=== PATIENT | male | born 1970 | race Caucasian/White ===

== ENCOUNTER 2025-02-05 16:33 | Outpatient (CLI) | payer OTHER, SELFPAY ==
--- OUTSIDE RECORDS SUMMARY | 2025-02-05 16:40 | XMS_ITS | Continuity of Care Document ---
Author Organization [facility] Address [address] [place] [address] Phone Care Team Providers Care Fire Management Officer Name Role Phone Unavailable Unavailable Unavailable Advance Directives Directive Yes / No Effective Date File Name No Information Encounters Encounter Description Practice Location Reason(s) For Visit Diagnoses Date Provider Providers Copied on Encounter [facility], [address], [place], [place], [id number], [place] tel:[phone] [facility] No Information 8200 0 No Information Family History Family Member Type Diagnosis Age At Onset No Information Payers Payer name Insurance type Covered democrat ID Authoriza tion(s) No Information Social History Type Description Quantity Date Captured Comments Sex Male Smoking Status No Information Chief Complaint And Reason For Visit No Information Reason For Referral Reason For Referral No Information History Of Present Illness Encounter Date Complaint History Of Prese nt Illness No Information Functional Status Date Functional Assessmen t No Information Instructions Date Instruction Additional Infor mation No Information Assessments Type Assessment Date No Information Patient Care Teams Name Effective Dates (start - stop) Status Members No Information
--- OUTSIDE RECORDS SUMMARY | 2025-02-05 16:40 | XMS_ITS | Clinical Summary ---
Author Organization [address] Address [address] [place] [phone] Care Team Providers Care Material Cutter Name Role Phone Polly Au MD Primary Care Provide r Allergies No known active allergies Medications No known medications Active Problems No known active problems Surgical History Surgery Date Site/Laterality Comments NO PAST SURGERIES Medical History Medical History Date Comments Hypertension states pre hype rtension Social History Tobacco Use Types Packs/Day Years Used Date Smoking Tobacco: Every Day Cigarettes Smokeless Tobacco: Never Personal Safety Answer Date Recorded Getting School Help Needed Not on file 11/13 Sex and Gender Information Value Date Recorded Sex Assigned at Not on file Legal Sex Male 8:02 AM TRAIN DISPATCHER Gender Identity Not on file Sexual Orientation Not on file Obstetrics History Last Filed Vital Signs Vital Sign Reading Time Taken Comments Blood Pressure - - Pulse - - Temperature 36.5 C (97.7 F) 11/06/2020 11:39 AM TRAIN DISPATCHER Respiratory Rate - - Oxygen Saturation - - Inhaled Oxygen Concentration - - Weight 77.1 kg (170 lb) 11/06/2020 11:39 AM TRAIN DISPATCHER Height 172.7 cm (5' 8 ) 11/06/2020 11:39 AM TRAIN DISPATCHER Body Mass Index 25.85 11/06/2020 11:39 AM TRAIN DISPATCHER Plan of Treatment Not on file Insurance AETNA [facility] HMO Care Teams Material Cutter Relationship Specialty Start Date End Date Polly Au MD PCP - General Family Practice 11/06/20
--- OUTSIDE RECORDS SUMMARY | 2025-02-05 16:40 | XMS_ITS | Referral Summary ---
Author Organization [address] Address [address] [place] [phone] Care Team Providers Care Communications Professor Name Role Phone Polly Au MD Primary Care Provide r Allergies No known active allergies Medications No known medications Active Problems No known active problems Social History Tobacco Use Types Packs/Day Years Used Date Smoking Tobacco: Every Day Cigarettes Smokeless Tobacco: Never Personal Safety Answer Date Recorded Getting School Help Needed Not on file 11/13 Sex and Gender Information Value Date Recorded Sex Assigned at Not on file Legal Sex Male 8:02 AM WATCH REPAIR PERSON Gender Identity Not on file Sexual Orientation Not on file Last Filed Vital Signs Vital Sign Reading Time Taken Comments Blood Pressure - - Pulse - - Temperature 36.5 C (97.7 F) 11/06/2020 11:39 AM WATCH REPAIR PERSON Respiratory Rate - - Oxygen Saturation - - Inhaled Oxygen Concentration - - Weight 77.1 kg (170 lb) 11/06/2020 11:39 AM WATCH REPAIR PERSON Height 172.7 cm (5' 8 ) 11/06/2020 11:39 AM WATCH REPAIR PERSON Body Mass Index 25.85 11/06/2020 11:39 AM WATCH REPAIR PERSON Plan of Treatment Not on file Insurance AETNA [facility] HMO Care Teams Communications Professor Relationship Specialty Start Date End Date Polly Au MD PCP - General Family Practice 11/06/20
[2025-02-05 16:50] LABS: Basophils Absolute Auto 0.05 K/mm3 (0.00-0.10); Basophils Percent Auto 0.4 % (0.0-1.0); Eosinophils Percent Auto 0.9 % (1.0-6.0); Hematocrit 44.7 % (40.0-54.0); Hemoglobin 14.6 g/dL (14.0-18.0); Immature Granulocyte Absolute 0.07 K/mm3 (0.00-0.00); Immature Granulocyte Percent A 0.6 % (0.0-0.0); Lymphocytes Absolute Auto 3.34 K/mm3 (1.10-4.50); Lymphocytes Percent Auto 28.8 % (18.0-42.0); Mean Corpuscular HGB Conc 32.7 g/dL (32-36); Mean Corpuscular Hemoglobin 29.3 pg (27.0-31.0); Mean Corpuscular Volume 89.6 fL (78.0-102.0); Mean Platelet Volume 10.9 fl (8.7-11.0); Monocytes Absolute Auto 1.18 K/mm3 (0.10-0.90); Monocytes Percent Auto 10.2 % (2.0-11.0); Neutrophils Absolute Auto 6.86 K/mm3 (1.70-7.20); Neutrophils Percent Auto 59.1 % (50.0-70.0); Platelet Count Result 314 K/mm3 (150-420); Red Blood Count 4.99 M/mm3 (4.70-6.10); Red Cell Distribution Width 12.9 % (11.6-14.4); White Blood Count 11.6 K/mm3 (4.8-10.8)
[2025-02-05 17:03] LABS: Alanine Aminotransferase 43 U/L (6-50); Albumin Level 4.4 g/dL (3.5-5.1); Alkaline Phosphatase 69 U/L (38-126); Anion Gap 5 mmol/L (4-12); Aspartate Amino Transferase 36 U/L (17-59); Bilirubin,Total 0.6 mg/dL (0.2-1.3); Blood Urea Nitrogen 13 mg/dL (9-20); Carbon Dioxide 30 mmol/L (22-30); Chloride 106 mmol/L (98-107); Creatine Kinase 153 U/L (55-170); Estimated Glomerular Filt Rate > 60; Glucose 87 mg/dL (65-110); Osmolality Calculated 291 mOsm/kg (285-295); Potassium 4.3 mmol/L (3.4-5.0); Sodium 141 mmol/L (137-145); Total Protein 7.4 g/dL (6.3-8.2)
[2025-02-05 17:15] LABS: Troponin I < 0.012 ng/mL (0.000-0.034)
== END 2025-02-05 16:34 | disposition home or self-care (01) ==
LOC: CHSLAB 16:38
PROVIDERS: PCP Family Medicine; Visit Provider Family Medicine
DX: R07.89 Other chest pain (principal)
CPT/HCPCS: 36415; 80053; 82550; 84443; 84484; 85025

== ENCOUNTER 2025-02-24 09:02 | Outpatient (CLI) | payer OTHER, SELFPAY ==
--- NOTE | 2025-02-24 09:10 | EST_ITS ---
Patient Info Name: Sal Schafer Age: 54 years : 1970 Gender: Male Ht: 68 in Wt: 198 lbs BSA: 2.10 m2 HR: 83 bpm BP: 131 / 93 mmHg Heart Rhythm: Sinus Rhythm Technical Quality: Good Exam Date: 02/24/2025 9:10 AM Patient Status: O Admit Date: 02/24/2025 Exam Type: CA stress test treadmill An exercise stress test was performed. Staff Attending Provider: Lorenzo Pate MD Summary 1. 1. Negative Brice exercise stress test for ischemic ST changes by ECG criteria. 2. 2. Good functional capacity, achieving 10 METs of workload. 3. 3. Appropriate HR response to exercise. 4. 4. Appropriate HR recovery at 1 minute post exercise. 5. 5. No imaging with stress testing. History/Risk Factors Hypertension: Yes Protocol: Brice Stress ECG Details Stage: REST Duration (min): 2 min : 40 sec Speed (mph): 0.0 Grade (%): 0 HR (bpm): 83 SBP (mmHg): 131 DBP (mmHg): 93 METS: --- Stage: REST Duration (min): 13 min : 38 sec Speed (mph): 0.0 Grade (%): 0 HR (bpm): 91 SBP (mmHg): 131 DBP (mmHg): 93 METS: --- Stage: STAGE 1 Duration (min): 1 min : 0 sec Speed (mph): 1.7 Grade (%): 10 HR (bpm): 109 SBP (mmHg): 131 DBP (mmHg): 93 METS: --- Stage: STAGE 1 Duration (min): 2 min : 0 sec Speed (mph): 1.7 Grade (%): 10 HR (bpm): 114 SBP (mmHg): 131 DBP (mmHg): 93 METS: --- Stage: STAGE 1 Duration (min): 3 min : 0 sec Speed (mph): 1.7 Grade (%): 10 HR (bpm): 98 SBP (mmHg): 199 DBP (mmHg): 87 METS: --- Stage: STAGE 2 Duration (min): 1 min : 0 sec Speed (mph): 2.5 Grade (%): 12 HR (bpm): 124 SBP (mmHg): 199 DBP (mmHg): 87 METS: --- Stage: STAGE 2 Duration (min): 2 min : 0 sec Speed (mph): 2.5 Grade (%): 12 HR (bpm): 130 SBP (mmHg): 199 DBP (mmHg): 87 METS: --- Stage: STAGE 2 Duration (min): 3 min : 0 sec Speed (mph): 2.5 Grade (%): 12 HR (bpm): 134 SBP (mmHg): 192 DBP (mmHg): 107 METS: --- Stage: STAGE 3 Duration (min): 1 min : 0 sec Speed (mph): 3.4 Grade (%): 14 HR (bpm): 143 SBP (mmHg): 192 DBP (mmHg): 107 METS: --- Stage: STAGE 3 Duration (min): 2 min : 0 sec Speed (mph): 3.4 Grade (%): 14 HR (bpm): 148 SBP (mmHg): 192 DBP (mmHg): 107 METS: --- Stage: STAGE 3 Duration (min): 2 min : 20 sec Speed (mph): 3.4 Grade (%): 14 HR (bpm): 150 SBP (mmHg): 192 DBP (mmHg): 107 METS: --- Stage: RECOVERY Duration (min): 0 min : 39 sec Speed (mph): 0.0 Grade (%): 0 HR (bpm): 141 SBP (mmHg): 171 DBP (mmHg): 104 METS: --- Stage: RECOVERY Duration (min): 1 min : 39 sec Speed (mph): 0.0 Grade (%): 0 HR (bpm): 122 SBP (mmHg): 171 DBP (mmHg): 104 METS: --- Stage: RECOVERY Duration (min): 2 min : 40 sec Speed (mph): 0.0 Grade (%): 0 HR (bpm): 113 SBP (mmHg): 147 DBP (mmHg): 79 METS: --- Stage: RECOVERY Duration (min): 3 min : 40 sec Speed (mph): 0.0 Grade (%): 0 HR (bpm): 108 SBP (mmHg): 138 DBP (mmHg): 80 METS: --- Stage: RECOVERY Duration (min): 4 min : 39 sec Speed (mph): 0.0 Grade (%): 0 HR (bpm): 109 SBP (mmHg): 138 DBP (mmHg): 80 METS: --- Stage: RECOVERY Duration (min): 5 min : 40 sec Speed (mph): 0.0 Grade (%): 0 HR (bpm): 107 SBP (mmHg): 133 DBP (mmHg): 82 METS: --- Stage: RECOVERY Duration (min): 6 min : 31 sec Speed (mph): 0.0 Grade (%): 0 HR (bpm): 111 SBP (mmHg): 133 DBP (mmHg): 82 METS: --- Rest HR: 91 bpm Peak HR: 150 bpm Rest Sys BP: 131 mmHg Peak Sys BP: 199 mmHg Max Pred HR: 165 bpm % Max Pred HR: 91 % Target HR: 140 bpm Max RPP: 29,850 bpm*mmHg Justice Score: 1 Target HR Summary: Patient's target heart rate was achieved BP Response: Normal blood pressure response Termination Reason: Fatigue Cardiac Symptoms: None Max ST Seg Deviation: 1.40 mm Total Time: 8 min : 20 sec Rest Lucas BP: 93 mmHg Peak Lucas BP: 87 mmHg Angina Score: None Total METS: 10.3 Resting ECG Sinus rhythm with IRBBB. Stress ECG No abnormal ST/T wave changes with exercise. Arrhythmias Frequent PVCs. Report Signatures
--- OUTSIDE RECORDS SUMMARY | 2025-02-24 09:39 | XMS_ITS | Referral Summary ---
Author Organization [address] Address [address] [place] [phone] Care Team Providers Care Tracer Lathe Set Up Operator Name Role Phone Polly Au MD Primary [...] on file Legal Sex Male 8:02 AM LIGHT BULB REPLACER Gender Identity Not on file Sexual Orientation Not on file Last Filed Vital Signs Vital Sign Reading Time Taken Comments Blood Pressure - - Pulse - - Temperature 36.5 C (97.7 F) 11/06/2020 11:39 AM LIGHT BULB REPLACER Respiratory Rate - - Oxygen Saturation - - Inhaled Oxygen Concentration - - Weight 77.1 kg (170 lb) 11/06/2020 11:39 AM LIGHT BULB REPLACER Height 172.7 cm (5' 8) 11/06/2020 11:39 AM LIGHT BULB REPLACER Body Mass Index 25.85 11/06/2020 11:39 AM LIGHT BULB REPLACER Plan of Treatment Not on file Insurance AETNA [facility] HMO Care Teams Tracer Lathe Set Up Operator Relationship Specialty Start Date End Date Polly Au MD PCP - General Family Practice 11/06/20
--- OUTSIDE RECORDS SUMMARY | 2025-02-24 09:39 | XMS_ITS | Clinical Summary ---
Author Organization [address] Address [address] [place] [phone] Care Team Providers Care Hedis Specialist Name Role Phone Polly Au MD Primary [...] on file Legal Sex Male 8:02 AM OXYHYDROGEN WELDER Gender Identity Not on file Sexual Orientation Not on file Obstetrics History Last Filed Vital Signs Vital Sign Reading Time Taken Comments Blood Pressure - - Pulse - - Temperature 36.5 C (97.7 F) 11/06/2020 11:39 AM OXYHYDROGEN WELDER Respiratory Rate - - Oxygen Saturation - - Inhaled Oxygen Concentration - - Weight 77.1 kg (170 lb) 11/06/2020 11:39 AM OXYHYDROGEN WELDER Height 172.7 cm (5' 8) 11/06/2020 11:39 AM OXYHYDROGEN WELDER Body Mass Index 25.85 11/06/2020 11:39 AM OXYHYDROGEN WELDER Plan of Treatment Not on file Insurance AETNA [facility] HMO Care Teams Hedis Specialist Relationship Specialty Start Date End Date Polly Au MD PCP - General Family Practice 11/06/20
--- OUTSIDE RECORDS SUMMARY | 2025-02-24 09:39 | XMS_ITS | Continuity of Care Document ---
Author Organization [facility] Address [address] [place] [address] Phone Care Team Providers Care Pile Driving Supervisor Name Role Phone Unavailable Unavailable Unavailable Advance Directives Directive Yes / No Effective Date File Name No Information Encounters Encounter Description Practice Location Reason(s) For Visit Diagnoses Date Provider Providers Copied on Encounter [facility], [address], [place], [place], [id number], [place] tel:[phone] [facility] No Information 8200 0 No Information Family History Family Member Type Diagnosis Age At Onset No Information Payers Payer name Insurance type Covered constitution party ID Authoriza tion(s) No Information Social History [...]
== END 2025-02-24 09:03 | disposition home or self-care (01) ==
LOC: CHSCARD 09:05
PROVIDERS: PCP Family Medicine; Visit Provider Family Medicine
DX: R07.89 Other chest pain (principal)
CPT/HCPCS: 93017

== ENCOUNTER 2025-03-28 15:01 | Outpatient (CLI) | payer OTHER, SELFPAY ==
--- OUTSIDE RECORDS SUMMARY | 2025-03-28 15:04 | XMS_ITS | Referral Summary ---
Author Organization [address] Address [address] [place] [phone] Care Team Providers Care Baseball Club Manager Name Role Phone Polly Au MD Primary [...] on file Legal Sex Male 8:02 AM SAMPLE CARD MAKER Gender Identity Not on file Sexual Orientation Not on file Last Filed Vital Signs Vital Sign Reading Time Taken Comments Blood Pressure - - Pulse - - Temperature 36.5 C (97.7 F) 11/06/2020 11:39 AM SAMPLE CARD MAKER Respiratory Rate - - Oxygen Saturation - - Inhaled Oxygen Concentration - - Weight 77.1 kg (170 lb) 11/06/2020 11:39 AM SAMPLE CARD MAKER Height 172.7 cm (5' 8) 11/06/2020 11:39 AM SAMPLE CARD MAKER Body Mass Index 25.85 11/06/2020 11:39 AM SAMPLE CARD MAKER Plan of Treatment Not on file Insurance AETNA [facility] HMO Care Teams Baseball Club Manager Relationship Specialty Start Date End Date Polly Au MD PCP - General Family Practice 11/06/20
--- OUTSIDE RECORDS SUMMARY | 2025-03-28 15:04 | XMS_ITS | Clinical Summary ---
Author Organization [facility] Address [address] [place] [address] Care Team Providers Care Egg Smeller Name Role Phone Gordo Conroy MD Unavailable [phone] MARITO Moeller Angela Primary Care Provider Allergies No known active allergies Medications apixaban 5 MG tablet Take 1 tablet (5 mg total) by mouth 2 (two) times daily. 60 tablet 11/12/2020 Active atorvastatin 40 MG tablet Take 1 tablet (40 mg total) by mouth nightly at bedtime. 30 tablet 11/12/2020 Active pantoprazole EC 40 MG tablet Take 1 tablet (40 mg total) by mouth daily. 30 tablet 11/13/2020 Active amLODIPine 10 MG tablet Take 1 tablet (10 mg total) by mouth daily. 30 tablet 11/13/2020 Active HYDROcodone-clare taminophen 7.5-325 MG tablet 11/12/2020 Active Active Problems Problem Noted Date Diagnosed Date Prediabetes 11/18/2020 PVD (peripheral vascular disease) 11/17/2020 Limb ischemia 11/06/2020 Family History Medical History Relation Comments Alzheimers Father Hyperlipidemia Father Hypertension Father polyp Father Alzheimers Mother Hypertension Mother Relation Status Comments Father Mother Alive Social History Tobacco Use Types Packs/Day Years Used Date Smoking Tobacco: Every Day Cigarettes 1 33 Smokeless Tobacco: Never Alcohol Use Standard Drinks/Week Comments No 0 (1 standard drink = 0.6 oz pur e alcohol) AUDIT-C Answer Date Recorded Frequency of Alcohol Consumption Never 10/04/2018 Average Number of Drinks Not on file 019 Frequency of Binge Drinking Not on file 09/18 PHQ-2 Answer Date Recorded PHQ-2 Score - If the patient scores above 3, please move on to questions 3-9 0 11/17/2020 Sex and Gender Information Value Date Recorded Sex Assigned at Not on file Legal Sex Male 10:58 AM RESEARCH DEVELOPMENT DIRECTOR Gender Identity Not on file Sexual Orientation Not on file Last Filed Vital Signs Vital Sign Reading Time Taken Comments Blood Pressure 128/80 11/17/2020 8:28 AM RESEARCH DEVELOPMENT DIRECTOR Pulse 68 11/17/2020 8:28 AM RESEARCH DEVELOPMENT DIRECTOR Temperature 36.9 C (98.5 F) 11/17/2020 8:28 AM RESEARCH DEVELOPMENT DIRECTOR Respiratory Rate 20 11/17/2020 8:28 AM RESEARCH DEVELOPMENT DIRECTOR Oxygen Saturation 98% 11/17/2020 8:28 AM RESEARCH DEVELOPMENT DIRECTOR Inhaled Oxygen Concentration - - Weight 76.2 kg (168 lb) 11/17/2020 8:28 AM RESEARCH DEVELOPMENT DIRECTOR Height 172.7 cm (5' 8) 11/17/2020 8:28 AM RESEARCH DEVELOPMENT DIRECTOR Body Mass Index 25.54 11/17/2020 8:28 AM RESEARCH DEVELOPMENT DIRECTOR Plan of Treatment Health Maintenance Due Date Last Done Comments ASCVD Statin 1970 Colorectal Cancer Screening Colonoscopy (10 Years) 1970 Annual Physical 1972 Hepatitis C 1987 DTaP, Tdap and Td Vaccines ( 1 - Tdap) 1988 Hepatitis B Vaccines (1 of 3 - 19+ 3-dose series) 1988 Pneumococcal Vaccine: 50+ Ye ars (1 of 2 - PCV) 1988 Zoster Vaccines (1 of 2) 2019 ASCVD LDL 11/07/2021 11/07/2020 COVID-19 Vaccine (1 - 2023-2 5 season) 2024 Meningococcal B Vaccine Aged Out No l onger eligible based on patient's age to complete this topic Meningococcal Vaccine Aged Out No zoey gisselle eligible based on patient's age to complete this topic RSV Immunizations Under 20 Months Aged Out No longer eligible based on patient's age to complete this topic Medical Devices Implanted Type Area Database Management Specialist Device Identifier Shelf Expiration Date Model / Serial / Lot Patch [place]. Vasc. Vascu-Guard 0.8cm X 8cm - [id number] Implanted:Qty: 1 on 11/10/2020 by Gordo Conroy MD at [facility] Right: Groin [employer] 06/10/2025 [id number] / / [id number] Procedures Procedure Name Priority Date/Time Associated Diagnosis Comments LIPID PANEL Routine 11/07/2020 1:06 AM RESEARCH DEVELOPMENT DIRECTOR from Last 3 Months or Most Recently Relevant to Health Maintenance Results * (ABNORMAL) LIPID PANEL (11/07/2020 1:06 AM RESEARCH DEVELOPMENT DIRECTOR) CHOLESTEROL 167 MG/DL 11/07/2020 2:43 AM RESEARCH DEVELOPMENT DIRECTOR [facility] Comment:DESIRABLE: <200 TRIGLYCERIDES 188 MG/DL 11/07/2020 2:43 AM RESEARCH DEVELOPMENT DIRECTOR [facility] Comment:150-199 BORDERLINE H IGH HDL 27(L) >39 MG/DL 11/07/2020 2:43 AM RESEARCH DEVELOPMENT DIRECTOR [facility] LDL (CALCULATED) 102 MG/DL 11/07/19 2:43 AM RESEARCH DEVELOPMENT DIRECTOR [facility] Comment:100-129 NEAR OR ABOV E OPTIMAL VLDL CALCULATION 38 MG/DL 11/07/19 2:43 AM RESEARCH DEVELOPMENT DIRECTOR [facility] Comment:REFERENCE RANGE NOT ESTABLISHED CHOL/HDL RATIO 6.2 11/07/2020 2:43 AM RESEARCH DEVELOPMENT DIRECTOR [facility] Comment:REFERENCE RANGE NOT ESTABLISHED LDL/HDL 3.8 11/07/2020 2:43 AM RESEARCH DEVELOPMENT DIRECTOR [facility] Comment:REFERENCE RANGE NOT ESTABLISHED NON HDL CHOLESTEROL 140 MG/DL 11/07/2020 2:43 AM RESEARCH DEVELOPMENT DIRECTOR [facility] Comment:REFERENCE RANGE NOT ESTABLISHED 11/07/2020 1:06 AM RESEARCH DEVELOPMENT DIRECTOR us Nils Banerjee MD LABORATORY Final Resul t [facility] [address] [place] [address], [id number] from Last 3 Months or Most Recently Relevant to Health Maintenance Insurance AETNA Advance Directives * Full Code (Latest Code Status on File) Date Activated Date Inactivated Comments 11/06/2020 10:38 PM 11/12/2020 4:31 PM Care Teams Egg Smeller Relationship Specialty Start Date End Date Romy Mercado V, [employer] PINION ADJUSTER- [address] [place] [address] [address] [place], [place] [id number] PCP - General Nurse Practitioner Family 12/06/22 Gordo Conroy MD [address] [place] [address] Vascular/Manager Creative VASCULAR SURGERY 11/17/20
--- OUTSIDE RECORDS SUMMARY | 2025-03-28 15:04 | XMS_ITS | Encounter Summary ---
Author Organization [facility] Address [address] [place] [address] Care Team Providers Care Crm Manager Name Role Phone Polly Au MD Primary Care Provider [phone] Gordo Conroy MD Unavailable [phone] MARITO Moeller Angela Primary Care Provider Encounter Details Date Type Department Care Team (Late st Contact Info) Description 11/16/2020 Hospital Follow-up Call [facility] [address] [place] [address] Flora Sousa RN Social History Tobacco Use Types Packs/Day Years [...] on file Legal Sex Male 10:58 AM EKG MONITOR Gender Identity Not on file Sexual Orientation Not on file COVID-19 Exposure Response Date Recorded In the last month, have you been in contact with someone who was confirmed or suspected to have Coronavirus / COVID-19? No / Unsure 11/17/2020 8:01 AM EKG MONITOR documented as of this encounter Functional Status * RETIRED Are you deaf or do you have serious difficulty hearing Answer Date of Assessment Author Status No 11/06/2020 11:50 PM EKG MONITOR Acti ve * RETIRED Are you blind or do you have serious difficulty seeing, even when wearing glasses? Answer Date of Assessment Author Status No 11/06/2020 11:50 PM EKG MONITOR Acti ve * Do you have serious difficulty walking or climbing stairs? Answer Date of Assessment Author Status Yes 11/06/2020 11:50 PM Lilly Delgado RN Active * Do you have difficulty dressing or bathing? Answer Date of Assessment Author Status No 11/06/2020 11:50 PM Lilly Delgado RN Active * Because of a physical, mental, or emotional condition, do you have difficulty doing errands alone such as visiting a doctor's office or shopping? Answer Date of Assessment Author Status No 11/06/2020 11:50 PM Lilly Delgado RN Active documented as of this encounter Mental Status * Because of a physical, mental, or emotional condition, do you have serious difficulty concentrating, remembering, or making decisions? Answer Entry Date Author Status No 11/06/2020 11:50 PM Lilly Delgado RN Active documented in this encounter Plan of Treatment Not on file documented as of this encounter Visit Diagnoses Not on filedocumented in this encounter Care Teams Crm Manager Relationship Specialty Start Date End Date Polly Au MD PCP - General FAMILY PRACTICE 10/02/18 12/05/22 Romy Mercado V, [facility] [address] [place] [address] [place] [address] PCP - General Nurse Practitioner Family 12/06/22 Gordo Conroy MD [address] [place] [address] Vascular/Courtesy Van Driver VASCULAR SURGERY 11/17/20 documented as of this encounter
--- OUTSIDE RECORDS SUMMARY | 2025-03-28 15:04 | XMS_ITS | Clinical Summary ---
Author Organization [address] Address [address] [place] [address] Care Team Providers Care Insurance Loss Adjuster Name Role Phone Polly Au MD Primary [...] on file Legal Sex Male 8:02 AM BUSINESS PROCESS COORDINATOR Gender Identity Not on file Sexual Orientation Not on file Obstetrics History Last Filed Vital Signs Vital Sign Reading Time Taken Comments Blood Pressure - - Pulse - - Temperature 36.5 C (97.7 F) 11/06/2020 11:39 AM BUSINESS PROCESS COORDINATOR Respiratory Rate - - Oxygen Saturation - - Inhaled Oxygen Concentration - - Weight 77.1 kg (170 lb) 11/06/2020 11:39 AM BUSINESS PROCESS COORDINATOR Height 172.7 cm (5' 8) 11/06/2020 11:39 AM BUSINESS PROCESS COORDINATOR Body Mass Index 25.85 11/06/2020 11:39 AM BUSINESS PROCESS COORDINATOR Plan of Treatment Not on file Insurance AETNA [facility] HMO Care Teams Insurance Loss Adjuster Relationship Specialty Start Date End Date Polly Au MD PCP - General Family Practice 11/06/20
== END 2025-03-28 15:02 | disposition home or self-care (01) ==
LOC: CHSIMG 15:02
PROVIDERS: PCP Family Medicine; Visit Provider Family Medicine
DX: I73.9 Peripheral vascular disease, unspecified (principal)
CPT/HCPCS: 99199

== ENCOUNTER 2025-04-09 14:13 | Outpatient (CLI) | payer OTHER, SELFPAY ==
--- NOTE | ~2025-04-09 | US_ITS ---
US arterial ankle brachial ind INDICATION: Peripheral vascular disease. Hypertension. TECHNIQUE: Segmental pressures and plethysmographic and Doppler waveforms of the brachial and lower e xtremity arteries were obtained. COMPARISON: None. FINDINGS: Right and left brachial artery pressures of 124 mm Hg and 119 mm Hg, respectively, are concordant (no rmal difference <= 30 mmHg). The right ankle-brachial index (JULISSA) is 1.1 (normal >= 0.9-1.0). The right great toe-brachial index ( TBI) is 0.71 (normal >= 0.60). The left JULISSA is 1.06. The left TBI is 0.71. IMPRESSION: 1. Normal ankle-brachial indices. Reviewed, dictated and finalized at location A.
--- OUTSIDE RECORDS SUMMARY | 2025-04-09 14:23 | XMS_ITS | Referral Summary ---
Author Organization [address] Address [address] [place] [phone] Care Team Providers Care After School Program Teacher Name Role Phone Polly Au MD Primary [...] on file Legal Sex Male 8:02 AM ELECTROGALVANIZING MACHINE OPERATOR Gender Identity Not on file Sexual Orientation Not on file Last Filed Vital Signs Vital Sign Reading Time Taken Comments Blood Pressure - - Pulse - - Temperature 36.5 C (97.7 F) 11/06/2020 11:39 AM ELECTROGALVANIZING MACHINE OPERATOR Respiratory Rate - - Oxygen Saturation - - Inhaled Oxygen Concentration - - Weight 77.1 kg (170 lb) 11/06/2020 11:39 AM ELECTROGALVANIZING MACHINE OPERATOR Height 172.7 cm (5' 8) 11/06/2020 11:39 AM ELECTROGALVANIZING MACHINE OPERATOR Body Mass Index 25.85 11/06/2020 11:39 AM ELECTROGALVANIZING MACHINE OPERATOR Plan of Treatment Not on file Insurance AETNA [facility] HMO Care Teams After School Program Teacher Relationship Specialty Start Date End Date Polly Au MD PCP - General Family Practice 11/06/20
--- OUTSIDE RECORDS SUMMARY | 2025-04-09 14:23 | XMS_ITS | Encounter Summary ---
Author Organization [facility] Address [address] [place] [id number] Care Team Providers Care Rn Disease Management Name Role Phone Polly Au MD Primary Care Provider [phone] Gordo Conroy MD Unavailable [phone] MARITO Moeller Angela Primary Care Provider Encounter Details Date Type Department Care Team (Late st Contact Info) Description 11/16/2020 Hospital Follow-up Call [facility] [address] [place] [address] Flora Sousa RN Social History [...] on file Legal Sex Male 10:58 AM DIGITAL ASSOCIATE Gender Identity Not on file Sexual Orientation Not on file COVID-19 Exposure Response Date Recorded In the last month, have you been in contact with someone who was confirmed or suspected to have Coronavirus / COVID-19? No / Unsure 11/17/2020 8:01 AM DIGITAL ASSOCIATE documented as of this encounter Functional Status * RETIRED Are you deaf or do you have serious difficulty hearing Answer Date of Assessment Author Status No 11/06/2020 11:50 PM DIGITAL ASSOCIATE Acti ve * RETIRED Are you blind or do you have serious difficulty seeing, even when wearing glasses? Answer Date of Assessment Author Status No 11/06/2020 11:50 PM DIGITAL ASSOCIATE Acti ve * Do you have serious [...] on filedocumented in this encounter Care Teams Rn Disease Management Relationship Specialty Start Date End Date Polly Au MD PCP - General FAMILY PRACTICE 10/02/18 12/05/22 Romy Mercado V, [facility] [address] [place] [address] [place] [address] PCP - General Nurse Practitioner Family 12/06/22 Gordo Conroy MD [address] [place] [address] Vascular/Project Coordinator VASCULAR SURGERY 11/17/20 documented as of this encounter
--- OUTSIDE RECORDS SUMMARY | 2025-04-09 14:23 | XMS_ITS | Clinical Summary ---
Author Organization [address] Address [address] [place] [id number] Care Team Providers Care Willow Analyst Name Role Phone Polly Au MD Primary [...] on file Legal Sex Male 8:02 AM GRIP Gender Identity Not on file Sexual Orientation Not on file Obstetrics History Last Filed Vital Signs Vital Sign Reading Time Taken Comments Blood Pressure - - Pulse - - Temperature 36.5 C (97.7 F) 11/06/2020 11:39 AM GRIP Respiratory Rate - - Oxygen Saturation - - Inhaled Oxygen Concentration - - Weight 77.1 kg (170 lb) 11/06/2020 11:39 AM GRIP Height 172.7 cm (5' 8) 11/06/2020 11:39 AM GRIP Body Mass Index 25.85 11/06/2020 11:39 AM GRIP Plan of Treatment Not on file Insurance [employer]ETNA [facility] HMO Care Teams Willow Analyst Relationship Specialty Start Date End Date Polly Au MD PCP - General Family Practice 11/06/20
--- OUTSIDE RECORDS SUMMARY | 2025-04-09 14:23 | XMS_ITS | Clinical Summary ---
Author Organization [facility] Address [address] [place] [address] Care Team Providers Care Obstetrics Specialist Name Role Phone Gordo Conroy MD Unavailable [phone] MARITO Moeller Angela Primary Care Provider [...] on file Legal Sex Male 10:58 AM FLATWORK PRESSER Gender Identity Not on file Sexual Orientation Not on file Last Filed Vital Signs Vital Sign Reading Time Taken Comments Blood Pressure 128/80 11/17/2020 8:28 AM FLATWORK PRESSER Pulse 68 11/17/2020 8:28 AM FLATWORK PRESSER Temperature 36.9 C (98.5 F) 11/17/2020 8:28 AM FLATWORK PRESSER Respiratory Rate 20 11/17/2020 8:28 AM FLATWORK PRESSER Oxygen Saturation 98% 11/17/2020 8:28 AM FLATWORK PRESSER Inhaled Oxygen Concentration - - Weight 76.2 kg (168 lb) 11/17/2020 8:28 AM FLATWORK PRESSER Height 172.7 cm (5' 8) 11/17/2020 8:28 AM FLATWORK PRESSER Body Mass Index 25.54 11/17/2020 8:28 AM FLATWORK PRESSER Plan of Treatment Health Maintenance Due Date [...] this topic Medical Devices Implanted Type Area Casino Games Dealer Device Identifier Shelf Expiration Date Model / Serial / Lot Patch [place]. Vasc. Vascu-Guard 0.8cm X 8cm - [id number] Implanted:Qty: 1 on 11/10/2020 by Gordo Conroy MD at [facility] Right: Groin [employer] 06/10/2025 [id number] / / [id number] Procedures Procedure Name Priority Date/Time Associated Diagnosis Comments LIPID PANEL Routine 11/07/2020 1:06 AM FLATWORK PRESSER from Last 3 Months or Most Recently Relevant to Health Maintenance Results * (ABNORMAL) LIPID PANEL (11/07/2020 1:06 AM FLATWORK PRESSER) CHOLESTEROL 167 MG/DL 11/07/2020 2:43 AM FLATWORK PRESSER [facility] Comment:DESIRABLE: <200 TRIGLYCERIDES 188 MG/DL 11/07/2020 2:43 AM FLATWORK PRESSER [facility] Comment:150-199 BORDERLINE H IGH HDL 27(L) >39 MG/DL 11/07/2020 2:43 AM FLATWORK PRESSER [facility] LDL (CALCULATED) 102 MG/DL 11/07/19 2:43 AM FLATWORK PRESSER [facility] Comment:100-129 NEAR OR ABOV E OPTIMAL VLDL CALCULATION 38 MG/DL 11/07/19 2:43 AM FLATWORK PRESSER [facility] Comment:REFERENCE RANGE NOT ESTABLISHED CHOL/HDL RATIO 6.2 11/07/2020 2:43 AM FLATWORK PRESSER [facility] Comment:REFERENCE RANGE NOT ESTABLISHED LDL/HDL 3.8 11/07/2020 2:43 AM FLATWORK PRESSER [facility] Comment:REFERENCE RANGE NOT ESTABLISHED NON HDL CHOLESTEROL 140 MG/DL 11/07/2020 2:43 AM FLATWORK PRESSER [facility] Comment:REFERENCE RANGE NOT ESTABLISHED 11/07/2020 1:06 AM FLATWORK PRESSER us Nils Banerjee MD LABORATORY Final Resul t [facility] [address] [place] [address], [id number] from Last 3 Months or Most Recently Relevant to Health Maintenance Insurance AET[employer] Advance Directives * Full Code (Latest Code Status on File) Date Activated Date Inactivated Comments 11/06/2020 10:38 PM 11/12/2020 4:31 PM Care Teams Obstetrics Specialist Relationship Specialty Start Date End Date Romy Mercado V, [employer] [facility] [address] [place] [address] [address] [place], [place] [id number] PCP - General Nurse Practitioner Family 12/06/22 Gordo Conroy MD [address] [place] [address] Vascular/Welder VASCULAR SURGERY 11/17/20
== END 2025-04-09 14:14 | disposition home or self-care (01) ==
LOC: CHSIMG 14:14
PROVIDERS: PCP Family Medicine; Visit Provider Family Medicine
DX: I73.9 Peripheral vascular disease, unspecified (principal)
CPT/HCPCS: 93922